=== PATIENT | female | born 1980 | race African-American/Black ===

== ENCOUNTER 2019-02-20 12:14 | Emergency (ER) | payer OTHER ==
[~2019-02-20] VITALS: Ht 165.1 cm; Wt 61.4 kg
[2019-02-20 13:18] LABS: BASOPHILS % (AUTO) 0.8 % (0.0-2.0); EOSINOPHILS % (AUTO) 0.5 % (1.0-6.0); HEMATOCRIT 37.8 % (36-46); LYMPHOCYTES # (AUTO) 1.4 K/uL (1.0-4.8); LYMPHOCYTES % (AUTO) 33.7 % (22.0-44.0); MEAN CORPUSCULAR HEMOGLOBIN 23.8 pg (26.0-34.0); MEAN CORPUSCULAR HGB CONC 31.7 G/dL (31.0-37.0); MEAN CORPUSCULAR VOLUME 75 fL (80-100); MONOCYTES # (AUTO) 0.6 K/uL (0.1-1.0); MONOCYTES % (AUTO) 13.1 % (2.0-9.0); NEUTROPHILS # (AUTO) 2.2 K/uL (1.8-7.7); NEUTROPHILS % (AUTO) 51.9 % (40.0-70.0); PLATELET COUNT (AUTO) 191 K/uL (150-450); RED BLOOD CELL COUNT(AUTO) 5.04 MIL/uL (4.00-5.20)
[2019-02-20 13:33] LABS: B-TYPE NATRIURETIC PEPTIDE < 5 pg/mL (0-100)
[2019-02-20 13:38] LABS: ALANINE AMINOTRANSFERASE 26 U/L (12-78); ALBUMIN 4.1 g/dL (3.4-5.0); ALKALINE PHOSPHATASE 51 U/L (46-116); ANION GAP 11 mmol/L (8-16); ASPARTATE AMINOTRANSFERASE 29 U/L (15-37); BILIRUBIN,TOTAL 0.8 mg/dL (0.1-1.0); CALCIUM, TOTAL 9.3 mg/dL (8.8-10.5); CARBON DIOXIDE 27 mmol/L (22-29); CHLORIDE 101 mmol/L (98-107); CREATININE 0.66 mg/dL (0.60-1.30); GLOMERULAR FILTR. RATE CALC > 60 mL/min (>60); GLUCOSE,RANDOM 80 mg/dL (70-110); POTASSIUM 3.7 mmol/L (3.5-5.1); SODIUM SERUM 139 mmol/L (136-145); TOTAL PROTEIN, SERUM 7.3 g/dL (6.4-8.2)
[2019-02-20 13:50] LABS: UREA NITROGEN, BLOOD 13 mg/dL (7-18)
[2019-02-20 14:10] VITALS: BP 119/81
== END 2019-02-20 14:40 | disposition home or self-care (01) ==
LOC: EMS 12:14
DX: R07.9 Chest pain, unspecified (principal); R03.0 Elevated blood-pressure reading, without diagnosis of hypertension; R06.02 Shortness of breath; R11.0 Nausea; F19.90 Other psychoactive substance use, unspecified, uncomplicated
CPT/HCPCS: 85379; 93005

== ENCOUNTER 2019-03-04 14:27 | Emergency (ER) | payer SELFPAY ==
[~2019-03-04] VITALS: Ht 165.1 cm; Wt 59.1 kg
[2019-03-04 18:47] LABS: BASOPHILS % (AUTO) 0.2 % (0.0-2.0); EOSINOPHILS % (AUTO) 0.1 % (1.0-6.0); HEMATOCRIT 36.9 % (36-46); HEMOGLOBIN 11.9 g/dL (12.0-16.0); LYMPHOCYTES # (AUTO) 1.7 K/uL (1.0-4.8); LYMPHOCYTES % (AUTO) 11.1 % (22.0-44.0); MEAN CORPUSCULAR HEMOGLOBIN 24.1 pg (26.0-34.0); MEAN CORPUSCULAR HGB CONC 32.2 G/dL (31.0-37.0); MEAN CORPUSCULAR VOLUME 75 fL (80-100); MONOCYTES # (AUTO) 1.6 K/uL (0.1-1.0); MONOCYTES % (AUTO) 10.3 % (2.0-9.0); NEUTROPHILS % (AUTO) 78.3 % (40.0-70.0); PLATELET COUNT (AUTO) 187 K/uL (150-450); RED BLOOD CELL COUNT(AUTO) 4.92 MIL/uL (4.00-5.20); RED CELL DISTRIBUTION WIDTH 13.9 % (11.5-14.5)
[2019-03-04 19:02] VITALS: BP 111/71
[2019-03-04 19:02] LABS: ANION GAP 9 mmol/L (8-16); CALCIUM, TOTAL 9.5 mg/dL (8.8-10.5); CARBON DIOXIDE 27 mmol/L (22-29); CHLORIDE 98 mmol/L (98-107); CREATININE 0.88 mg/dL (0.60-1.30); GLOMERULAR FILTR. RATE CALC > 60 mL/min (>60); GLUCOSE,RANDOM 114 mg/dL (70-110); POTASSIUM 3.1 mmol/L (3.5-5.1); SODIUM SERUM 134 mmol/L (136-145); UREA NITROGEN, BLOOD 11 mg/dL (7-18)
[2019-03-04 19:08] LABS: ALANINE AMINOTRANSFERASE 16 U/L (12-78); ALBUMIN 3.4 g/dL (3.4-5.0); ALKALINE PHOSPHATASE 62 U/L (46-116); ASPARTATE AMINOTRANSFERASE 18 U/L (15-37); BILIRUBIN,TOTAL 0.9 mg/dL (0.1-1.0); TOTAL PROTEIN, SERUM 7.6 g/dL (6.4-8.2)
== END 2019-03-04 19:35 | disposition home or self-care (01) ==
LOC: EMS 14:28
DX: J18.9 Pneumonia, unspecified organism (principal); F15.10 Other stimulant abuse, uncomplicated; F17.210 Nicotine dependence, cigarettes, uncomplicated; F12.90 Cannabis use, unspecified, uncomplicated

== ENCOUNTER 2019-07-31 12:56 | Emergency (ER) | payer SELFPAY ==
[~2019-07-31] VITALS: Ht 165.1 cm; Wt 54.5 kg
[2019-07-31] MEDS ORDERED: IBUPROFEN 600 MG TABLET PO ONE (14:45)
[2019-07-31 16:51] VITALS: BP 138/80
== END 2019-07-31 17:30 | disposition home or self-care (01) ==
LOC: EMS 12:57
DX: S20.212A Contusion of left front wall of thorax, initial encounter (principal); F10.20 Alcohol dependence, uncomplicated; F15.90 Other stimulant use, unspecified, uncomplicated; Y04.0XXA Assault by unarmed brawl or fight, initial encounter; Y93.89 Activity, other specified; Y92.89 Other specified places as the place of occurrence of the external cause; Y99.8 Other external cause status
CPT/HCPCS: 71101

== ENCOUNTER 2019-11-04 17:54 | Emergency (ER) | payer OTHER ==
[~2019-11-04] VITALS: Ht 165.1 cm; Wt 54.5 kg
[2019-11-04] MEDS ORDERED: penicillin PO (18:05)
[2019-11-04] MEDS ORDERED: HYDROCODONE/ACETAMINOPHEN 5-325 MG TABLET PO ONE (18:30)
[2019-11-04] MEDS ORDERED: IBUPROFEN 600 MG TABLET PO ONE (18:30)
[2019-11-04] MEDS ORDERED: PENI500T2 PO (18:41)
[2019-11-04] MEDS ORDERED: LIDOCAINE 2% 5 ML JELLY TP ONE (18:45)
[2019-11-04] MEDS ORDERED: LIDOCAINE 2% 30 ML JELLY TP ONE (19:00)
[2019-11-04 19:17] VITALS: BP 119/74
== END 2019-11-04 20:04 | disposition home or self-care (01) ==
LOC: EMS 17:56
DX: J02.0 Streptococcal pharyngitis (principal); F19.90 Other psychoactive substance use, unspecified, uncomplicated

== ENCOUNTER 2020-03-05 16:24 | Emergency (ER) | payer OTHER ==
[~2020-03-05] VITALS: Ht 165.1 cm; Wt 54.5 kg
[~2020-03-05 16:24] MED LIST: PENI500T2 PO
[2020-03-05 17:20] LABS: BASOPHILS % (AUTO) 1.9 % (0.0-2.0); EOSINOPHILS % (AUTO) 1.3 % (1.0-6.0); HEMATOCRIT 39.4 % (36-46); HEMOGLOBIN 12.6 g/dL (12.0-16.0); MEAN CORPUSCULAR HEMOGLOBIN 23.7 pg (26.0-34.0); MEAN CORPUSCULAR HGB CONC 31.9 G/dL (31.0-37.0); MEAN CORPUSCULAR VOLUME 74 fL (80-100); MONOCYTES # (AUTO) 0.6 K/uL (0.1-1.0); MONOCYTES % (AUTO) 15.2 % (2.0-9.0); NEUTROPHILS # (AUTO) 1.1 K/uL (1.8-7.7); NEUTROPHILS % (AUTO) 28.6 % (40.0-70.0); PLATELET COUNT (AUTO) 221 K/uL (150-450); RED CELL DISTRIBUTION WIDTH 14.2 % (11.5-14.5)
[2020-03-05] MEDS ORDERED: KETOROLAC TROMETHAMINE 30 MG/ML VIAL IVP ONE (17:30)
[2020-03-05] MEDS ORDERED: SODIUM CHLORIDE 0.9% 1,000 ML IV ONE (17:30)
[2020-03-05 17:46] LABS: ANION GAP 10 mmol/L (8-16); CALCIUM, TOTAL 8.8 mg/dL (8.8-10.5); CARBON DIOXIDE 26 mmol/L (22-29); CHLORIDE 100 mmol/L (98-107); CREATININE 0.81 mg/dL (0.60-1.30); GLOMERULAR FILTR. RATE CALC > 60 mL/min (>60); GLUCOSE,RANDOM 86 mg/dL (70-110); POTASSIUM 3.6 mmol/L (3.5-5.1); SODIUM SERUM 136 mmol/L (136-145); UREA NITROGEN, BLOOD 11 mg/dL (7-18)
[2020-03-05 17:57] LABS: ALANINE AMINOTRANSFERASE 26 U/L (12-78); ALBUMIN 3.8 g/dL (3.4-5.0); ALKALINE PHOSPHATASE 60 U/L (46-116); ASPARTATE AMINOTRANSFERASE 20 U/L (15-37); BILIRUBIN,TOTAL 0.3 mg/dL (0.1-1.0); HCG,QUANTITATIVE 1 mIU/mL (0-6); TOTAL PROTEIN, SERUM 7.6 g/dL (6.4-8.2)
[2020-03-05 18:31] VITALS: BP 125/76
== END 2020-03-05 18:56 | disposition home or self-care (01) ==
LOC: EMS 16:24
DX: T67.5XXA Heat exhaustion, unspecified, initial encounter (principal); R07.89 Other chest pain; R51 Headache; F17.210 Nicotine dependence, cigarettes, uncomplicated; F19.90 Other psychoactive substance use, unspecified, uncomplicated; X58.XXXA Exposure to other specified factors, initial encounter; Y93.89 Activity, other specified; Y92.89 Other specified places as the place of occurrence of the external cause; Y99.8 Other external cause status
CPT/HCPCS: 36415; 71045; 80053; 84702; 85025; 93005; 96361; 96374; 99285; 99406; G0480; J1885; J7030

== ENCOUNTER 2021-09-01 01:28 | Emergency (ER) | payer OTHER ==
[~2021-09-01] VITALS: Ht 165.1 cm; Wt 54.5 kg
[2021-09-01 01:38] VITALS: BP 125/82
[2021-09-01 02:22] LABS: COVID AG,FIA SOURCE NASAL SWAB
== END 2021-09-01 04:00 | disposition home or self-care (01) ==
LOC: EMS 01:33
DX: R05.9 Cough, unspecified (principal); R09.81 Nasal congestion; F17.210 Nicotine dependence, cigarettes, uncomplicated; F19.90 Other psychoactive substance use, unspecified, uncomplicated; Z20.822 Contact with and (suspected) exposure to COVID-19
CPT/HCPCS: 71045; 99284

== ENCOUNTER 2021-11-15 23:52 | Emergency (ER) | payer OTHER ==
[~2021-11-15] VITALS: Ht 165.1 cm; Wt 60.6 kg
[2021-11-16 00:38] VITALS: BP 113/71
[2021-11-16] MEDS ORDERED: IBUPROFEN 600 MG TABLET PO ONE (00:45)
== END 2021-11-16 01:14 | disposition home or self-care (01) ==
LOC: EMS 23:55
DX: M62.838 Other muscle spasm (principal); F41.9 Anxiety disorder, unspecified; F43.0 Acute stress reaction; F15.10 Other stimulant abuse, uncomplicated; F10.10 Alcohol abuse, uncomplicated; F17.210 Nicotine dependence, cigarettes, uncomplicated
CPT/HCPCS: 99282; Z7502; Z7610

== ENCOUNTER 2023-04-12 21:24 | Emergency (ER) | payer OTHER ==
[~2023-04-12] VITALS: Ht 165.1 cm; Wt 75.0 kg
[2023-04-12 22:30] VITALS: BP 121/69; PULSE 74; RESP 17; TEMP 98.3
[2023-04-12] MEDS ORDERED: AMOX500C2 PO (22:32)
[2023-04-12] MEDS ORDERED: METR500 PO (22:32)
[2023-04-12] MEDS ORDERED: IBUP-1492 PO (22:32)
== END 2023-04-12 22:56 | disposition home or self-care (01) ==
LOC: EMS 21:25
DX: K02.9 Dental caries, unspecified (principal); F10.20 Alcohol dependence, uncomplicated; F17.210 Nicotine dependence, cigarettes, uncomplicated; F15.90 Other stimulant use, unspecified, uncomplicated; F12.90 Cannabis use, unspecified, uncomplicated; Z98.890 Other specified postprocedural states; Y90.9 Presence of alcohol in blood, level not specified
CPT/HCPCS: 99281; Z7502

== ENCOUNTER 2023-09-07 11:20 | Emergency (ER) | payer OTHER ==
[~2023-09-07] VITALS: Ht 165.1 cm; Wt 59.1 kg
[~2023-09-07 11:20] MED LIST changes: +AMOX500C2 PO; +IBUP-1492 PO; +METR500 PO; -PENI500T2 PO
[2023-09-07 11:22] VITALS: TEMP 98.2
[2023-09-07] MEDS: SODIUM CHLORIDE 0.9% 1,000 ML IV ONE (12:15)
[2023-09-07 12:25] LABS: EOSINOPHILS % (AUTO) 1.3 % (1.0-6.0); HEMATOCRIT 38.6 % (36-46); HEMOGLOBIN 12.3 g/dL (12.0-16.0); LYMPHOCYTES # (AUTO) 1.9 K/uL (1.0-4.8); MEAN CORPUSCULAR HGB CONC 31.7 G/dL (31.0-37.0); MEAN CORPUSCULAR VOLUME 73 fL (80-100); MONOCYTES # (AUTO) 0.6 K/uL (0.1-1.0); MONOCYTES % (AUTO) 12.6 % (2.0-9.0); NEUTROPHILS # (AUTO) 2.5 K/uL (1.8-7.7); NEUTROPHILS % (AUTO) 48.1 % (40.0-70.0); PLATELET COUNT (AUTO) 222 K/uL (150-450); RED BLOOD CELL COUNT(AUTO) 5.33 MIL/uL (4.00-5.20); RED CELL DISTRIBUTION WIDTH 14.7 % (11.5-14.5); WHITE BLOOD COUNT (AUTO) 5.1 K/uL (4.5-11.0)
[2023-09-07 12:31] LABS: ANION GAP 11 mmol/L (8-16); CALCIUM, TOTAL 9.1 mg/dL (8.8-10.5); CARBON DIOXIDE 24 mmol/L (22-29); CHLORIDE 104 mmol/L (98-107); CREATININE 0.69 mg/dL (0.60-1.30); GLOMERULAR FILTR. RATE CALC > 60 mL/min (>60); GLUCOSE,RANDOM 83 mg/dL (70-110); POTASSIUM 3.8 mmol/L (3.5-5.1); SODIUM SERUM 139 mmol/L (136-145); UREA NITROGEN, BLOOD 13 mg/dL (7-18)
[2023-09-07 12:52] VITALS: BP 106/60; PULSE 90; RESP 18
== END 2023-09-07 13:00 | disposition home or self-care (01) ==
LOC: EMS 11:20
DX: F10.20 Alcohol dependence, uncomplicated (principal); F15.90 Other stimulant use, unspecified, uncomplicated; F17.210 Nicotine dependence, cigarettes, uncomplicated; F12.90 Cannabis use, unspecified, uncomplicated; Y90.9 Presence of alcohol in blood, level not specified
CPT/HCPCS: 99283; 96360; 80048; 85025; 36415; J7030

== ENCOUNTER 2023-11-02 20:48 | Emergency (ER) | payer OTHER ==
[~2023-11-02] VITALS: Ht 165.1 cm; Wt 65.0 kg
[~2023-11-02 20:48] MED LIST changes: +ACET-3385 PO; +DOXY-354 PO
[2023-11-02 22:05] LABS: BASOPHILS % (AUTO) 0.6 % (0.0-2.0); EOSINOPHILS % (AUTO) 1.7 % (1.0-6.0); HEMOGLOBIN 12.4 g/dL (12.0-16.0); LYMPHOCYTES # (AUTO) 2.3 K/uL (1.0-4.8); LYMPHOCYTES % (AUTO) 40.9 % (22.0-44.0); MEAN CORPUSCULAR HGB CONC 31.6 G/dL (31.0-37.0); MEAN CORPUSCULAR VOLUME 73 fL (80-100); MONOCYTES # (AUTO) 0.5 K/uL (0.1-1.0); MONOCYTES % (AUTO) 9.6 % (2.0-9.0); NEUTROPHILS # (AUTO) 2.6 K/uL (1.8-7.7); NEUTROPHILS % (AUTO) 47.2 % (40.0-70.0); PLATELET COUNT (AUTO) 196 K/uL (150-450); RED BLOOD CELL COUNT(AUTO) 5.38 MIL/uL (4.00-5.20); RED CELL DISTRIBUTION WIDTH 14.3 % (11.5-14.5); WHITE BLOOD COUNT (AUTO) 5.6 K/uL (4.5-11.0)
[2023-11-02 22:15] LABS: ANION GAP 12 mmol/L (8-16); CARBON DIOXIDE 25 mmol/L (22-29); CHLORIDE 100 mmol/L (98-107); CREATININE 0.75 mg/dL (0.60-1.30); GLOMERULAR FILTR. RATE CALC > 60 mL/min (>60); GLUCOSE,RANDOM 77 mg/dL (70-110); POTASSIUM 3.7 mmol/L (3.5-5.1); SODIUM SERUM 137 mmol/L (136-145); UREA NITROGEN, BLOOD 14 mg/dL (7-18)
[2023-11-02 22:21] LABS: ALANINE AMINOTRANSFERASE 26 U/L (12-78); ALBUMIN 3.8 g/dL (3.4-5.0); ALKALINE PHOSPHATASE 63 U/L (46-116); ASPARTATE AMINOTRANSFERASE 25 U/L (15-37); BILIRUBIN,TOTAL 0.5 mg/dL (0.1-1.0); TOTAL PROTEIN, SERUM 7.6 g/dL (6.4-8.2)
[2023-11-02 22:24] LABS: TROPONIN I-HIGH SENSITIVITY 4 ng/L (<51)
[2023-11-02 22:56] LABS: RBC MORPHOLOGY COMMENT ABNORMAL RBC MORPH
[2023-11-02 23:50] VITALS: BP 120/56; PULSE 92; RESP 16; TEMP 98.7
[2023-11-02] MEDS: KETOROLAC TROMETHAMINE 60 MG/2 ML VIAL IM ONE (23:55)
== END 2023-11-03 00:19 | disposition home or self-care (01) ==
LOC: EMS 20:49
DX: R07.89 Other chest pain (principal); M79.18 Myalgia, other site; J18.9 Pneumonia, unspecified organism; F17.210 Nicotine dependence, cigarettes, uncomplicated; F12.90 Cannabis use, unspecified, uncomplicated; F15.90 Other stimulant use, unspecified, uncomplicated
CPT/HCPCS: 99285; 71045; 80053; 84484; 84703; 85025; 36415; 93005; 96372; J1885

== ENCOUNTER 2024-07-16 17:38 | Emergency (ER) | payer OTHER ==
[~2024-07-16] VITALS: Ht 165.1 cm; Wt 65.0 kg
[2024-07-16 19:18] LABS: APPEARANCE,URINE CLEAR (CLEAR); BILIRUBIN,URINE NEGATIVE (NEGATIVE); COLOR,URINE LIGHT YELLOW (YELLOW); GLUCOSE, URINE (UA) NEGATIVE (NEGATIVE); KETONES,URINE NEGATIVE (NEGATIVE); LEUKOCYTE ESTERASE ,URINE NEGATIVE (NEGATIVE); NITRATE,URINE NEGATIVE (NEGATIVE); OCCULT BLOOD,URINE NEGATIVE (NEGATIVE); PROTEIN,URINE NEGATIVE (NEGATIVE); SPECIFIC GRAVITIY, URINE 1.025 (1.003-1.030)
[2024-07-16] MEDS ORDERED: CEPH-558 PO (20:19)
[2024-07-16 21:50] VITALS: BP 124/75; PULSE 72; RESP 18; TEMP 97.3; O2SAT 100
[2024-07-19 06:06] LABS: HEPATITIS A ANTIBODY IGM Negative (Negative); HEPATITIS B CORE IGM Negative (Negative); HEPATITIS C AB (EIA) Non Reactive (Non Reactive)
== END 2024-07-16 22:08 | disposition home or self-care (01) ==
LOC: EMS 17:38
DX: L73.9 Follicular disorder, unspecified (principal); F12.90 Cannabis use, unspecified, uncomplicated; F17.210 Nicotine dependence, cigarettes, uncomplicated
CPT/HCPCS: 80074; 81003; 86592; 99283

== ENCOUNTER 2024-07-27 13:07 | Emergency (ER) | payer OTHER ==
[~2024-07-27] VITALS: Ht 167.6 cm; Wt 68.2 kg
[~2024-07-27 13:07] MED LIST changes: +CEPH-558 PO
[2024-07-27 13:09] VITALS: BP 131/70; PULSE 98; RESP 18; TEMP 98.8; O2SAT 99
[2024-07-27 13:49] LABS: COVID AG,FIA SOURCE NASAL SWAB
[2024-07-27 14:13] LABS: INFLUENZA TYPE A NEGATIVE FOR TYPE A (NEGATIVE); INFLUENZA TYPE B NEGATIVE FOR TYPE B (NEGATIVE); SARS-COV2 (COVID) ANTIGEN,FIA Negative (Negative)
[2024-07-27] MEDS ORDERED: BENZ-227 PO (15:18)
[2024-07-27] MEDS ORDERED: IBUP-1492 PO (15:18)
[2024-07-27] MEDS: BENZONATATE 100 MG CAPSULE PO ONE (15:33)
[2024-07-27] MEDS: ACETAMINOPHEN 500 MG TABLET PO ONE (15:33)
[2024-07-27] MEDS ORDERED: ALBU18HF12 IH (15:53)
[2024-07-27] MEDS ORDERED: ALBUTEROL SULFATE HFA 90 MCG/PUFF 8 GM INHALER IH ONE (16:00)
== END 2024-07-27 15:59 | disposition home or self-care (01) ==
LOC: EMS 13:14
DX: B34.9 Viral infection, unspecified (principal); R05.9 Cough, unspecified; F12.90 Cannabis use, unspecified, uncomplicated; F17.210 Nicotine dependence, cigarettes, uncomplicated; Z20.822 Contact with and (suspected) exposure to COVID-19
CPT/HCPCS: 87804; 99283

== ENCOUNTER 2025-05-22 17:54 | Emergency (ER) | payer OTHER ==
[~2025-05-22] VITALS: Ht 165.1 cm; Wt 63.6 kg
[~2025-05-22 17:54] MED LIST changes: +ALBU18HF12 IH; +BENZ-227 PO; +ONDA-104 PO
[2025-05-22 18:09] VITALS: BP 120/67; PULSE 88; RESP 18; TEMP 98.6; O2SAT 100
[2025-05-22 18:24] LABS: APPEARANCE,URINE CLEAR (CLEAR); GLUCOSE, URINE (UA) NEGATIVE (NEGATIVE); LEUKOCYTE ESTERASE ,URINE NEGATIVE (NEGATIVE); NITRATE,URINE NEGATIVE (NEGATIVE); OCCULT BLOOD,URINE NEGATIVE (NEGATIVE); SPECIFIC GRAVITIY, URINE 1.028 (1.003-1.030)
[2025-05-22 18:48] LABS: PLATELET COUNT (AUTO) 249 K/uL (150-450); RED BLOOD CELL COUNT(AUTO) 5.58 MIL/uL (4.00-5.20); RED CELL DISTRIBUTION WIDTH 14.2 % (11.5-14.5); WHITE BLOOD COUNT (AUTO) 5.9 K/uL (4.5-11.0)
[2025-05-22 18:54] LABS: CALCIUM, TOTAL 9.0 mg/dL (8.8-10.5); CREATININE 0.71 mg/dL (0.60-1.30); GLOMERULAR FILTR. RATE CALC > 60 mL/min (>60); GLUCOSE,RANDOM 74 mg/dL (70-110); SODIUM SERUM 140 mmol/L (136-145); UREA NITROGEN, BLOOD 11 mg/dL (7-18)
[2025-05-22] MEDS ORDERED: POLY17PO47 PO (19:03)
[2025-05-22 19:09] LABS: RBC MORPHOLOGY COMMENT ABNORMAL RBC MORPH
== END 2025-05-22 20:40 | disposition home or self-care (01) ==
LOC: EMS 17:54
DX: K59.00 Constipation, unspecified (principal); F10.20 Alcohol dependence, uncomplicated; F12.90 Cannabis use, unspecified, uncomplicated; F15.90 Other stimulant use, unspecified, uncomplicated; F17.210 Nicotine dependence, cigarettes, uncomplicated; Z79.899 Other long term (current) drug therapy; Y90.9 Presence of alcohol in blood, level not specified
CPT/HCPCS: 80048; 81003; 84703; 85025; 99283